=== PATIENT | female | born 1980 | race Caucasian/White ===

== ENCOUNTER → 2017-12-12 10:31 | Outpatient (CLI) | payer BC, SELFPAY ==
[2017-12-12 12:39] LABS: Chlamydia Trachomatis by PCR Negative (Negative); Neisserai gonorrhoeae by PCR Negative (Negative); Probe Check PASS; Sample Adequacy Control PASS; Specimen Processing Control PASS
[2017-12-17 10:47] LABS: HPV Reflexed? NOT INDICATED
== END ==
PROVIDERS: Visit Provider Obstetrics & Gynecology
DX: Z32.01 Encounter for pregnancy test, result positive (principal); Z11.3 Encounter for screening for infections with a predominantly sexual mode of transmission; Z12.4 Encounter for screening for malignant neoplasm of cervix
CPT/HCPCS: 87491; 87591; 88175; G0145

== ENCOUNTER → 2017-12-26 16:39 | Outpatient (CLI) | payer BC, SELFPAY ==
[2017-12-26 17:29] LABS: Absolute Lymphocyte Count 2.15 X10^3/ul (0.83-4.51); Absolute Neutrophil Count 8.1 X10^3/uL (2.0-7.7); Basophil# 0.03 X10^3/uL; Basophil% 0.3 % (0-1); Eosinophil# 0.12 X10^3/uL; Eosinophils% 1.1 % (0-5); Hematocrit 41.1 % (37-47); Hemoglobin 13.9 g/dl (12.0-15.0); Lymphocyte # 2.15 X10^3/ul (4.0); Lymphocyte % 18.9 % (19-41); Mean Corp Hgb Conc 33.8 g/gl (32-36); Mean Corpuscular Hgb 32.1 pg (27.0-32.0); Mean Corpuscular Volume 94.9 fL (81-99); Mean Platelet Vol. 9.7 fl (6.2-12.0); Monocyte# 0.99 X10^3/uL; Monocyte% 8.7 % (0-10); Neutrophil # 8.08 X10^3/uL (2.7-7.7); Neutrophil % 70.7 % (47-70); Platelet Count 350 K/mm3 (150-450); RBC Distribution Width CV 12.7 % (11.6-14.6); RBC Distribution Width SD 42.8 fl (35.1-43.9); Red Blood Count 4.33 M/mm3 (4.2-5.4); White Blood Count 11.4 K/mm3 (4.4-11.0)
[2017-12-26 17:50] LABS: POSITIVE COUNT NO; POSITIVE DIFFERENTIAL NO; POSITIVE MORPHOLOGY NO
[2017-12-26 17:56] LABS: Thyroid Stim Hormone (TSH) 0.31 uIU/mL (0.358-3.74)
[2017-12-26 18:14] LABS: Color, Urine Yellow (Yellow); Glucose, Dipstick Normal (Normal); Ketone-Dipstick Negative (Negative); Leukocyte Esterase-Dipstick Negative /ul (Negative); Nitrite-Dipstick Negative (Negative); Occult Blood-Urine Negative /ul (Negative); Protein-Dipstick Negative (Negative); Specific Gravity, Urine 1.015 (1.002-1.030); Urine Bilirubin Dipstick Negative (Negative); Urine Clarity Sl. Cloudy (Clear); Urine Urobilinogen Normal (Normal)
[2017-12-26 18:39] LABS: Amphetamine Urine VISTA NEGATIVE (<1000 ng/mL); Barbiturate Urine VISTA NEGATIVE (< 200 ng/mL); Benzodiazepine Urine VISTA NEGATIVE (< 200 ng/mL); Cocaine Urine VISTA NEGATIVE (< 300 ng/mL); Ecstacy Urine VISTA NEGATIVE (< 500 ng/mL); Methadone Urine VISTA NEGATIVE (< 300 ng/mL); PCP Urine VISTA NEGATIVE (< 25 ng/mL); THC Urine VISTA NEGATIVE (< 50 ng/mL); Vista UDS pH Range 6
[2017-12-26 19:58] LABS: COTININE Drug Screen Negative (<200 ng/mL)
[2017-12-27 02:42] LABS: Prenatal RPR NONREACTIVE (NONREACTIVE)
[2017-12-27 09:28] LABS: Free T3 3.4 pg/mL (2.18-3.98); T4 Free Direct 1.05 ng/dL (0.76-1.46)
[2017-12-27 10:13] LABS: HIV - WCH Non-Reactive (Nonreactive); Rubella IgG 114.6 IU/mL
[2017-12-28 15:13] LABS: HEPATITIS B SURFACE AG Negative (Negative); Hep C Antibodies 0.2 s/co ratio (0.0-0.9)
== END ==
PROVIDERS: Visit Provider Obstetrics & Gynecology
DX: Z34.81 Encounter for supervision of other normal pregnancy, first trimester (principal)
CPT/HCPCS: 36415; 80307; 81002; 84439; 84443; 84481; 85025; 86703; 86762; 86803; 87340

== ENCOUNTER 2018-08-03 11:15 | Inpatient (IN) | payer OTHER, SELFPAY ==
[2018-08-02 17:15] VITALS: BMI 31.4
[2018-08-02 17:26] LABS: ROM Internal Control Test YES-OK TO RESULT pt. (Internal QC); ROM Patient Test Negative (Negative); Record Kit Lot#, ROM+ J7836
[2018-08-02] MEDS: Lactated Ringers 1,000 ML 999 ML IV (19:13)
[2018-08-02] MEDS: Acetaminophen 500 MG Tablet 1000 MG PO (20:03)
[2018-08-02] MEDS: Lactated Ringers 1,000 ML 150 ML IV (20:12)
[2018-08-02] MEDS: Mag Hydrox/Al Hydrox/Simeth 30 ML UDC PO (21:47)
[2018-08-02] MEDS: Nalbuphine 10 MG/ML Ampul IV (21:47)
[2018-08-03] MEDS: proMETHazine 25 MG/ML Syringe 12.5 MG IV ×2 (00:45→06:45)
[2018-08-03] MEDS: Nalbuphine 10 MG/ML Ampul IV ×2 (00:52→10:21)
[2018-08-03] MEDS: Lactated Ringers 1,000 ML 150 ML IV ×2 (02:07→08:07)
[2018-08-03 11:49] LABS: Hematocrit 42.9 % (37-47); Hemoglobin 13.1 g/dl (12.0-15.0); Mean Corp Hgb Conc 30.5 g/gl (32-36); Mean Corpuscular Hgb 29.2 pg (27.0-32.0); Mean Corpuscular Volume 95.8 fL (81-99); Mean Platelet Vol. 10.7 fl (6.2-12.0); Platelet Count 302 K/mm3 (150-450); RBC Distribution Width CV 17.8 % (11.6-14.6); RBC Distribution Width SD 61.1 fl (35.1-43.9); Red Blood Count 4.48 M/mm3 (4.2-5.4); Scan Indicated on CBC? Y/N NO; White Blood Count 13.1 K/mm3 (4.4-11.0)
[2018-08-03] MEDS: Lactated Ringers 1,000 ML 50 ML IV ×3 (11:50→18:09)
[2018-08-03] MEDS: fentaNYL-bupivacaine (epidural) 100 ML BAG EPIDURAL ×3 (12:54→21:37)
[2018-08-03] MEDS: Oxytocin 30 units/NS 500 ml 30 UNITS/500 ML IV.SOLN IV (13:10)
[2018-08-03] MEDS: Ondansetron 4 MG/2 ML Vial IV (17:44)
[2018-08-03] MEDS: Sodium Citrate/Citric Acid 30 ML UDC PO (22:42)
[2018-08-03] MEDS: Cefazolin 2 GM in 0.9% Normal Saline 100 ML IV (22:43)
[2018-08-03] MEDS: Lactated Ringers 1,000 ML 999 ML IV (22:44)
--- NOTE | 2018-08-03 22:47 | PLAC_PTH ---
PATIENT: STEPHANIE MUSTAFA LOC: [facility] U#:[id number] AGE/SX: 37/F ROOM: WP010 RE08/03/[address]: Dr. Marcus Vee MD : 1980 BED: 1 DIS: 08/06/2018 SPEC #: [id number] RECD: 08/04/18 03:35 STATUS: LEONA REAbilio #: [id number] DIANA: 08/03/18 22:[address]: Marcus Vee DEPT: SURGICAL PATHOLOGY RECD BY: Brody Nick ENTERED: 08/04/18 07:58 SP TYPE: PLACENTA OT DR: No Primary Care Phys Tissues: Placenta, NOS Procedures: Surgery Specimen Level V HEADER OPERATION: Primary section PRE-OP DIAGNOSIS: Maternal fever TISSUE SUBMITTED: Placenta MICROSCOPIC DIAGNOSIS Aguilar placenta (480 gm): Umbilical cord - trivascular with very early acute funisitis (single vessel). Placental membranes - mild acute chorioamnionitis and acute deciduitis. Placental disc - remote infarcts. Focal superficial acute vasculitis, intervillous congestion, mildly increased intraparenchymal fibrin plaques and mild acute deciduitis. AM:sanjana 08/06/18 MICROSCOPIC DESCRIPTION Slides are reviewed. GROSS DESCRIPTION SPECIMEN: PLACENTA / CLINICAL INFORMATION: A. Weight: 3.805 kg B. Gestational Age: 40 weeks C. Sex: Male PLACENTAL WEIGHT (POST FIXATION): 480 gm PLACENTAL DIMENSIONS: 22 x 17 x 2.5 cm PLACENTAL SHAPE: Usual ovoid PLACENTAL WEIGHT FOR GESTATIONAL AGE: Within 10-99th percentile MEMBRANES - Present A. Insertion: Marginal B. Site of rupture from edge: At edge of placental disc C. Color of membrane: Faith-lawrence D. Abnormalities: None UMBILICAL CORD - Present A. Color: Faith-lawrence B. Insertion: Eccentric C. Length: 47 cm D. Diameter: 1.2 cm E. Number of vessels: Three F. Abnormalities: None PLACENTAL DISC - Present A. Color of surface: Faith-lawrence B. surface abnormalities: None C. Maternal cotyledons: Intact with minimal tears D. Attached retro placental clot: No clot E. Cut surface: Dark red and spongy F. Lesions: Serial sections reveal two faith-white firm lesions ranging in size from 2.2 to 2.5 cm. G. Separate clot: Absent SECTIONS SUBMITTED: 1. Membrane roll and umbilical cord ( end notched) 2. Placental disc, and maternal surfaces, lesions 3. Placental disc, and maternal surfaces 4. Placental disc, and maternal surfaces AM:sanjana 08/05/18 TC:2 CPT: 79925
--- NOTE | 2018-08-03 22:53 | OP.PCM_ITS ---
Report of Operation Date of Procedure: 08/03/18 Pre-Operative Diagnosis: Failure to Progress, Increasing Stress, Maternal Flu Symptoms, Maternal Tachycardia Post-Operative Diagnosis: Failure to Progress, Increasing Stress, Maternal Flu Symptoms, Maternal Tachycardia Surgery/Procedure Performed:: Primary Low Transverse Cervical Section Description of Surgical Findings:: Viable male infant with Apgars of 8/9 and an occiput anterior presentation with moderately thick meconium stained fluid and normal but meconium stained three- vessel placenta. Normal-appearing fallopian tubes and ovaries. computer aided design technician: Lindsay Grimaldo Type of Anesthesia:: Epidural - With Duramorph Anesthesiologist: Chapin Durant Specimen's removed: Placenta to pathology for studies Drains: Palomares to straight drain Estimated Blood Loss (mL): 500 cc Fluids Replaced: Crystalloid Description of Procedure: Surgeon: Marcus Vee MD, FACOG Indication: This is a 37-year-old who presents for her first at 40+ weeks gestation. The patient presented last evening with fairly strong and frequent contractions but observation overnight did not show any change in the cervix from fingertip and 50% effaced with high station. We continued to monitor her because she lives almost an hour [place] a half away and she continued to have strong contractions. Mid morning she was examined and noted to be 4 cm 95% effaced and rupture of membranes showed light meconium stained fluid. She progressed to 7 cm 95% and -2 station by mid afternoon and had occasional late decelerations. Of note was maternal tachycardia 145-150 intermittently. Her maximum temperature during this period of time was 100.8 but for the most part was in the 99's. heart tones remained reactive except for occasional late decelerations especially after placing her epidural. We continued to monitor maternal heart rate which eventually settled to approximately 105. At approximately 10 PM maternal temperature spiked to 102+. Cervix remained unchanged at 7 cm 95% effaced and -2 station. care has otherwise been uneventful. Given no progression of the cervix and increasing stress it was decided to proceed with section. It was felt that the maternal fever was most likely due to a virus although her rapid flu test was negative. She did report flulike symptoms from the time of admission to the time that her section was performed. The patient has been counseled regarding the risk and indications of this procedure including the possibility of bleeding infection and injury to surrounding structures such as bowel bladder. All questions were answered. Procedure: Patient was taken to the operating room where after spinal anesthesia was placed, the patient was prepped and draped in usual sterile fashion and a Palomares catheter was placed. The abdomen was entered through a Pfannenstiel incision and peritoneum was entered bluntly. After developing a bladder flap on the lower uterine segment a low transverse incision was made on the uterus and head was easily delivered onto the operative field the nose mouth and oropharynx were bulb suctioned. Subsequently a viable male infant was born with Apgars of 8/9. The was noted to cry move all extremities vigorously on the operative field. The umbilical cord was doubly clamped and ligated and handed to the nursery personnel who were present for the delivery. Placenta was delivered and noted to be 3 vessels and normal. Uterus was exteriorized and remaining placental tissue was removed. The uterus was then closed in 2 layers first with running locked 0 Vicryl suture followed by a second imbricating layer with 0 Vicryl suture. 0 Vicryl suture was then used in a horizontal mattress interrupted fashion to affect final hemostasis of the uterine incision line. Normal fallopian tubes and ovaries were visualized and the uterus was returned to the pelvis. Hemostasis was noted and rectus abdominis muscles were reapproximated in the midline with interrupted Number 0 Vicryl suture in a horizontal mattress fashion. Fascia was closed with running Number 1 PDS Strata fix suture. Subcutaneous tissue was irrigated with copious amouts of saline solution and then closed with running 3-0 Vicryl suture. Skin was closed with 4-0 monocryl suture in a running subcuticular fashion. Steri strips, telfa, and tape were placed across the incision. The patient tolerated the procedure well and was taken to the recovery room in satisfactory condition. Sponge, needle, and instrument counts were all reportedly correct. EBL was less than 500 cc. Ancef 2 gms IV was given prior to the procedure although she had been given multiple doses of penicillin throughout the day for group B strep positive vaginal cultures. Grafts/Implants Used: None - Complications None - Admit VTE Documentation VTE Present on Admission: Yes VTE Mechan Device Prophylaxis: SCD's
--- NOTE | 2018-08-03 22:54 | DCINST_ITS ---
Discharge Diet: No Restrictions Discharge Activity: May not drive while taking narcotic pain medications., May Shower, May Take a Tub Bath May resume sexual activity in: 4-6 weeks Lifting Restrictions: 20 pounds Additional Activity Instructions:: Nothing in the vagina for 4-6 weeks. You may return to work/school in 6 weeks. Call your doctor if your incision/area has: Continuous Slow Oozing, Sudden Increased Bleeding, Increased Pain/ Swelling, Increased Redness, Foul Smelling Discharge Call your doctor if you observe: Fever of 101 or Higher, Inability to urinate, Inability to have a bowel movement, Using more than one pad per hour Additional Instructions: If you experience any of the following, contact your healthcare provider. * Bleeding that soaks a pad every hour for 2 hours * Fever 100.4 or higher * Unrelieved incision or abdominal pain * Swelling, redness, discharge or bleeding from your incision or episiotomy site * Your incision begins to separate * Problems urinating (including inability to urinate or burning while urinating). * Visual changes * Severe headache * Flu-like symptoms * Pain or redness in one of both of your breasts * Pain, warmth, tenderness or swelling in your legs, especially the calf area * Frequent nausea and vomiting * Symptoms of depression or anxiety If you experience any of the following, call 911 or go to the nearest Emergency Room. * Chest pain * Problems breathing * Seizure activity * Partial or complete paralysis of a body part, slurred speech, weakness or drooping of the face, or a sudden inability to walk or hold your balance Allergies/Adverse Reactions: Allergies No Known Allergies Allergy (Verified 08/03/18 11:26) Medications to take at Discharge Vit No.130/Iron/Folic [ Tablet] 1 each PO DAILY 01/30/17 Docusate Sodium [Colace] 100 mg PO BID PRN PRN #60 cap 08/03/18 Oxycodone [Oxyir] 5 mg PO Q6H PRN PRN 7 Days #20 tab 08/03/18 The following prescriptions were given: Oxycodone [Oxyir] 5 mg PO Q6H PRN PRN 7 Days #20 tab PRN Reason: Severe Pain (6-03/26) Docusate Sodium [Colace] 100 mg PO BID PRN PRN #60 cap PRN Reason: Constipation Follow-Up: Call to make an appointment with your doctor for an incision check in 1-2 weeks. You will also need a 6 week post- follow up appointment. Test results from this visit will be discussed in further detail at your follow- up appointment, if applicable. Please Follow Up With: Beto Gloria MD - [phone] When: Call to make an appointment for an incision check in 2 weeks. Primary Care Physician: Care Physician,No Primary [Primary Care Provider] -
[2018-08-03] MEDS: Oxytocin 30 units/NS 500 ml 30 UNITS/500 ML IV.SOLN 167 UNITS IV (23:12)
[2018-08-03] MEDS: Methylergonovine 0.2 MG/ML Ampul IM (23:13)
[2018-08-03] MEDS: Ketorolac 30 MG/ML Syringe IV (23:45)
[2018-08-04] VITALS (26 sets, daily range): BP systolic 105–142; BP diastolic 55–84; PULSE 84–122; RESP 12–20; TEMP 36.7–38.2; O2SAT 94–99
[2018-08-04] MEDS: Acetaminophen 650 MG Suppository RECTAL (00:38)
[2018-08-04] MEDS: Lactated Ringers 1,000 ML 100 ML IV (01:06)
[2018-08-04 04:26] LABS: Pathology Specimen OB SEE PATHOLOGY REPORT
[2018-08-04] MEDS: Ketorolac 30 MG/ML Syringe IV ×3 (06:11→18:00)
[2018-08-04] MEDS: Cefazolin 1 GM/50 ML BAG IV ×2 (06:11→14:53)
[2018-08-04 07:03] LABS: Hematocrit 34.6 % (37-47); Hemoglobin 11.3 g/dl (12.0-15.0); Mean Corp Hgb Conc 32.7 g/gl (32-36); Mean Corpuscular Hgb 30.7 pg (27.0-32.0); Mean Platelet Vol. 10.4 fl (6.2-12.0); Platelet Count 252 K/mm3 (150-450); RBC Distribution Width CV 17.5 % (11.6-14.6); RBC Distribution Width SD 58.1 fl (35.1-43.9); Red Blood Count 3.68 M/mm3 (4.2-5.4); White Blood Count 26.8 K/mm3 (4.4-11.0)
[2018-08-04 07:06] LABS: Scan Indicated on CBC? Y/N NO
--- NOTE | 2018-08-04 10:06 | PCM.PN.OB ---
Subjective: Patient without complaints. Tolerating diet well. Positive flatus. Feeling quite a bit better today versus yesterday in the day before as far as viral symptoms. - Physical Exam Vital Signs Temp Pulse Resp BP Pulse Ox 98.1 F 97 16 108/68 99 08/04/18 08:15 08/04/18 09:14 08/04/18 09:14 08/04/18 08:15 08/04/18 09:14 Oxygen Flow Rate (L/min) 2 Oxygen Delivery Method Room Air Weight: 215 lb 13.321 oz Body Mass Index (BMI) 31.4 Intake and Output for Last 24 Hours 08/02/18 08/03/18 08/04/18 23:59 23:59 23:59 Intake Total 4553 / 4553 2143 / 2143 Output Total 400 / 400 1350 / 1350 Balance 4153 / 4153 793 / 793 Microbiology Past 72 Hours 08/03/18 16:03 Influenza Types A,B Direct FA (LUZMARIA) - Final Mucosa - Nose Laboratory Tests Past 24 Hrs 08/03/18 08/03/18 08/04/18 11:07 11:07 06:10 WBC 13.1 H 26.8 H RBC 4.48 3.68 L Hgb 13.1 11.3 L Hct 42.9 34.6 L MCV 95.8 94.0 MCH 29.2 30.7 MCHC 30.5 L 32.7 RDW 17.8 H 17.5 H RDW Differential 61.1 H 58.1 H Plt Count 302 252 MPV 10.7 10.4 Blood Type AB POSITIVE Antibody Screen NEGATIVE Wound is clean, dry, intact. Good urine output. Hemoglobin okay. WBC still elevated. Medical Necessity - Tobacco Use Smoking Status: Former smoker Assessment/Plan Doing well postoperative day #1 status post primary section for failure to progress, increasing stress, maternal fever, maternal flu symptoms, and maternal tachycardia. Tachycardia has for the most part resolved and flu symptoms seem to be resolving also. WBC still elevated so we will recheck CBC tomorrow. Continuing present care.
[2018-08-04] MEDS: 0.9% Saline Lock 10 ML Syringe IV ×2 (12:01→18:00)
[2018-08-04] MEDS: Lactated Ringers 500 ML IV (16:16)
[2018-08-04] MEDS: Acetaminophen 500 MG Tablet 1000 MG PO (20:54)
[2018-08-05] MEDS: 0.9% Saline Lock 10 ML Syringe IV ×2 (01:24→05:59)
[2018-08-05] MEDS: Ketorolac 30 MG/ML Syringe IV (01:24)
[2018-08-05 05:50] VITALS: BP 105/72; PULSE 87; RESP 18; TEMP 36.8; O2SAT 96
[2018-08-05] MEDS: Ibuprofen 600 MG Tablet PO ×2 (06:20→16:33)
[2018-08-05 06:31] LABS: Absolute Lymphocyte Count 2.74 X10^3/ul (0.83-4.51); Absolute Neutrophil Count 13.1 X10^3/uL (2.0-7.7); Basophil# 0.02 X10^3/uL; Basophil% 0.1 % (0-1); Eosinophil# 0.11 X10^3/uL; Eosinophils% 0.6 % (0-5); Hematocrit 32.7 % (37-47); Hemoglobin 10.5 g/dl (12.0-15.0); Lymphocyte # 2.74 X10^3/ul (4.0); Lymphocyte % 15.6 % (19-41); Mean Corp Hgb Conc 32.1 g/gl (32-36); Mean Corpuscular Hgb 30.3 pg (27.0-32.0); Mean Corpuscular Volume 94.2 fL (81-99); Mean Platelet Vol. 9.8 fl (6.2-12.0); Neutrophil # 13.12 X10^3/uL (2.7-7.7); Neutrophil % 74.8 % (47-70); Platelet Count 269 K/mm3 (150-450); RBC Distribution Width CV 17.6 % (11.6-14.6); RBC Distribution Width SD 58.3 fl (35.1-43.9); Red Blood Count 3.47 M/mm3 (4.2-5.4); White Blood Count 17.6 K/mm3 (4.4-11.0)
[2018-08-05 06:49] LABS: POSITIVE COUNT NO; POSITIVE DIFFERENTIAL NO; POSITIVE MORPHOLOGY NO
--- NOTE | 2018-08-05 08:27 | PCM.PN.OB ---
Subjective: Pain reasonably controlled with mostly motrin. Doesn't like how she feels on oxycodone. Will switch to hydrocodone for strong pain. Bleeding light. Breast feeding. Tolerating PO. Voiding. Objective: Afeb VSS WBC decreasing. - Physical Exam General: Alert, Oriented x3, Cooperative, No apparent distress Lungs: Clear to auscultation, Normal air movement Cardiovascular: Regular rate, Regular Rhythm Abdomen: Soft, Non Tender, - - Incision C/D/I Extremities: No edema Skin: No rashes Neurological: Neuro grossly intact Psych/Mental Status: Normal Affect Comment: Lochia light Vital Signs Temp Pulse Resp BP Pulse Ox 98.2 F 87 18 105/72 96 08/05/18 05:50 08/05/18 05:50 08/05/18 05:50 08/05/18 05:50 08/05/18 05:50 Oxygen Flow Rate (L/min) 2 Oxygen Delivery Method Room Air Weight: 215 lb 13.321 oz Body Mass Index (BMI) 31.4 Intake and Output for Last 24 Hours 08/03/18 08/04/18 08/05/18 23:59 23:59 23:59 Intake Total 4553 / 4553 4281 / 4281 Output Total 400 / 400 2825 / 2825 700 / 700 Balance 4153 / 4153 1456 / 1456 -700 / -700 Microbiology Past 72 Hours 08/03/18 16:03 Influenza Types A,B Direct FA (LUZMARIA) - Final Mucosa - Nose Laboratory Tests Past 24 Hrs 08/05/18 06:14 WBC 17.6 H RBC 3.47 L Hgb 10.5 L Hct 32.7 L MCV 94.2 MCH 30.3 MCHC 32.1 RDW 17.6 H RDW Differential 58.3 H Plt Count 269 MPV 9.8 Immature Gran % (Auto) 0.900 Neut % (Auto) 74.8 H Lymph % (Auto) 15.6 L [place] % (Auto) 8.0 Eos % (Auto) 0.6 Baso % (Auto) 0.1 Absolute Neuts (auto) 13.1 H Absolute Lymphs (auto) 2.74 Total Counted Not Reportable Medical Necessity - Tobacco Use Smoking Status: Former smoker Assessment/Plan Doing well on POD#2. Will continue routine PP care. Droplet precautions in place but likely does not have flu.
[2018-08-05 08:53] VITALS: BP 114/70; PULSE 86; RESP 18; TEMP 37.2; O2SAT 97
[2018-08-05 13:56] VITALS: BP 128/79; PULSE 90; RESP 18; TEMP 37.5; O2SAT 98
[2018-08-05 20:00] VITALS: BP 111/65; PULSE 106; RESP 18; TEMP 36.9; O2SAT 96
[2018-08-06] MEDS: Ibuprofen 600 MG Tablet PO (00:07)
[2018-08-06 02:10] VITALS: BP 125/72; PULSE 80; RESP 16; TEMP 36.2; O2SAT 98
[2018-08-06] MEDS: HYDROcodone Bitartrate/Apap 5/325 Tablet PO ×2 (02:20→11:02)
--- NOTE | 2018-08-06 08:57 | PCM.PN.OB ---
Subjective: Doing well. Some incisinal soreness but overall pain reasonably controlled with PO medications. Breast feeding. Bleeding light. Objective: Afeb VSS - Physical Exam General: Alert, Oriented x3, Cooperative, No apparent distress Lungs: Clear to auscultation, Normal air movement Cardiovascular: Regular rate, Regular Rhythm Abdomen: Soft, Non Tender, Non-Distended, - - Incision dressing dry intact no erythema Extremities: No edema Skin: No rashes Neurological: Neuro grossly intact Psych/Mental Status: Normal Affect Comment: Lochia light Vital Signs Temp Pulse Resp BP Pulse Ox 97.1 F L 80 16 125/72 H 98 08/06/18 02:10 08/06/18 02:10 08/06/18 02:10 08/06/18 02:10 08/06/18 02:10 Oxygen Flow Rate (L/min) 2 Oxygen Delivery Method Room Air Weight: 215 lb 13.321 oz Body Mass Index (BMI) 31.4 Intake and Output for Last 24 Hours 08/04/18 08/05/18 08/06/18 23:59 23:59 23:59 Intake Total 4281 / 4281 Output Total 2825 / 2825 700 / 700 Balance 1456 / 1456 -700 / -700 Microbiology Past 72 Hours 08/03/18 16:03 Influenza Types A,B Direct FA (LUZMARIA) - Final Mucosa - Nose Medical Necessity - Tobacco Use Smoking Status: Former smoker Assessment/Plan Doing well on POD#3. Cleared for discharge home today. Home going instructions and warnings given.
--- NOTE | 2018-08-06 08:59 | PCM.DC.SUM ---
Discharge Date and Diagnosis Date of Admission: 08/03/18 Date of Discharge: 08/06/18 - Primary Discharge Diagnosis S/P Primary C/S - Secondary Discharge Diagnosis Chronic Problems Missed (Chronic) Hospital Course and Treatment Consultations 08/03/18 11:36 Consult: Anesthesia Routine Comment: Reason For Exam: LABOR Operations: - - Primary LTCS Summary of Care Provided: The patient is a 37 year old F [admitted in active labor. Did not progress in labor with maximum cervical dilation of 6 cm. Had fevers in labor likely related to URI/GI viral infection. Influenza testing negative. Primary LTCS was performed by Dr. Vee without complication and postoperative course was unremarkable. She was discharged home on POD#3.] - Physical Exam Vital Signs Temp Pulse Resp BP Pulse Ox 97.1 F L 80 16 125/72 H 98 08/06/18 02:10 08/06/18 02:10 08/06/18 02:10 08/06/18 02:10 08/06/18 02:10 Oxygen Flow Rate (L/min) 2 Oxygen Delivery Method Room Air Weight: 215 lb 13.321 oz Body Mass Index (BMI) 31.4 Intake and Output for Last 24 Hours 08/04/18 08/05/18 08/06/18 23:59 23:59 23:59 Intake Total 4281 / 4281 Output Total 2825 / 2825 700 / 700 Balance 1456 / 1456 -700 / -700 Microbiology Past 72 Hours 08/03/18 16:03 Influenza Types A,B Direct FA (LUZMARIA) - Final Mucosa - Nose Discharge Diet: No Restrictions Discharge Activity: May not drive while taking narcotic pain medications., May Shower, May Take a Tub Bath May resume sexual activity in: 4-6 weeks Additional Activity Instructions:: Nothing in the vagina for 4-6 weeks. You may return to work/school in 6 weeks. Call your doctor if your incision/area has: Continuous Slow Oozing, Sudden Increased Bleeding, Increased Pain/ Swelling, Increased Redness, Foul Smelling Discharge Call your doctor if you observe: Fever of 101 or Higher, Inability to urinate, Inability to have a bowel movement, Using more than one pad per hour, Shortness of breath, Chest pain, Calf discomfort, Uncontrolled pain Cleanse incision/area with: Soap & Water Home Medications: Medications to take at Discharge Vit No.130/Iron/Folic [ Tablet] 1 each PO DAILY 01/30/17 Docusate Sodium [Colace] 100 mg PO BID PRN PRN #60 cap 08/03/18 Oxycodone [Oxyir] 5 mg PO Q6H PRN PRN 7 Days #20 tab 08/03/18 Hydrocodone/Acetaminophen [Hydrocodon-Acetaminophen 5-325] 1 ea PO Q6H PRN PRN 7 Days #30 tab 08/05/18 Ibuprofen 600 mg PO 4X/DAY #30 tab 08/05/18 Following Prescrptions Were Given to Patient: Hydrocodone/Acetaminophen [Hydrocodon-Acetaminophen 5-325] 1 ea PO Q6H PRN PRN 7 Days #30 tab PRN Reason: strong pain Oxycodone [Oxyir] 5 mg PO Q6H PRN PRN 7 Days #20 tab PRN Reason: Severe Pain (6-10/10) Docusate Sodium [Colace] 100 mg PO BID PRN PRN #60 cap PRN Reason: Constipation Ibuprofen 600 mg PO 4X/DAY #30 tab Primary Care Physician: Care Physician,No Primary [Primary Care Provider] - Please Follow Up With: Beto Gloria MD - [phone] When: Call to make an appointment for an incision check in 2 weeks. Disposition: Home Minutes spent on discharge:: 15 Patient Condition:: Good Medical Necessity - Tobacco Use Smoking Status: Former smoker Meaningful Use Info Meaningful Use Diagnoses (Choose all that apply): None applicable
[2018-08-06] MEDS: Senna/Docusate Sodium 1 Tablet PO (09:03)
--- NOTE | 2018-08-06 09:03 | DCINST_ITS ---
Discharge Diet: No Restrictions Discharge Activity: May not drive while taking narcotic pain medications., May Shower, May Take a Tub Bath Return to work on:: 10/06/18 May resume sexual activity in: 4-6 weeks Additional Activity Instructions:: Nothing in the vagina for 4-6 weeks. You may return to work/school in 6 weeks. Call your doctor if your incision/area has: Continuous Slow Oozing, Sudden Increased Bleeding, Increased Pain/ Swelling, Increased Redness, Foul Smelling Discharge Call your doctor if you observe: Fever of 101 or Higher, Inability to urinate, Inability to have a bowel movement, Using more than one pad per hour, Shortness of breath, Chest pain, Calf discomfort, Uncontrolled pain Cleanse incision/area with: Soap & Water Additional Instructions: If you experience any of the following, contact your healthcare provider. * Bleeding that soaks a pad every hour for 2 hours * Fever 100.4 or higher * Unrelieved incision or abdominal pain * Swelling, redness, discharge or bleeding from your incision or episiotomy site * Your incision begins to separate * Problems urinating (including inability to urinate or burning while urinating). * Visual changes * Severe headache * Flu-like symptoms * Pain or redness in one of both of your breasts * Pain, warmth, tenderness or swelling in your legs, especially the calf area * Frequent nausea and vomiting * Symptoms of depression or anxiety If you experience any of the following, call 911 or go to the nearest Emergency Room. * Chest pain * Problems breathing * Seizure activity * Partial or complete paralysis of a body part, slurred speech, weakness or drooping of the face, or a sudden inability to walk or hold your balance Allergies/Adverse Reactions: Allergies No Known Allergies Allergy (Verified 08/03/18 11:26) Medications to take at Discharge Vit No.130/Iron/Folic [ Tablet] 1 each PO DAILY 01/30/17 Docusate Sodium [Colace] 100 mg PO BID PRN PRN #60 cap 08/03/18 Oxycodone [Oxyir] 5 mg PO Q6H PRN PRN 7 Days #20 tab 08/03/18 Hydrocodone/Acetaminophen [Hydrocodon-Acetaminophen 5-325] 1 ea PO Q6H PRN PRN 7 Days #30 tab 08/05/18 Ibuprofen 600 mg PO 4X/DAY #30 tab 08/05/18 The following prescriptions were given: Hydrocodone/Acetaminophen [Hydrocodon-Acetaminophen 5-325] 1 ea PO Q6H PRN PRN 7 Days #30 tab PRN Reason: strong pain Oxycodone [Oxyir] 5 mg PO Q6H PRN PRN 7 Days #20 tab PRN Reason: Severe Pain (6-10/10) Docusate Sodium [Colace] 100 mg PO BID PRN PRN #60 cap PRN Reason: Constipation Ibuprofen 600 mg PO 4X/DAY #30 tab Follow-Up: Call to make an appointment with your doctor for an incision check in 1-2 weeks. You will also need a 6 week post- follow up appointment. Test results from this visit will be discussed in further detail at your follow- up appointment, if applicable. Please Follow Up With: Beto Gloria MD When: one week Primary Care Physician: Care Physician,No Primary [Primary Care Provider] - Proposed Discharge Date: 08/06/18
[2018-08-06 09:07] VITALS: BP 115/73; PULSE 88; RESP 18; TEMP 36.2; O2SAT 98
--- NOTE | 2018-08-06 10:47 | NURSING ---
Prescriptions from Dr Vee for oxyir destroyed and new script from Dr Gloria Hydrococodone given .
[2018-08-06 14:00] VITALS: BP 123/76; PULSE 103; RESP 16; TEMP 36.9; O2SAT 98
[2018-08-06 14:52] VITALS: BP 123/76; PULSE 103; RESP 16; TEMP 36.9; O2SAT 98
== END 2018-08-06 14:50 | disposition home or self-care (01) | DRG 787 ==
LOC: WPOUT 11:28
PROVIDERS: Admitting Provider Obstetrics & Gynecology; Referring Provider Obstetrics & Gynecology; Visit Provider Obstetrics & Gynecology
DX: O62.0 Primary inadequate contractions (principal); O98.82 Other maternal infectious and parasitic diseases complicating childbirth; O98.52 Other viral diseases complicating childbirth; O76 Abnormality in fetal heart rate and rhythm complicating labor and delivery; B34.9 Viral infection, unspecified; O77.0 Labor and delivery complicated by meconium in amniotic fluid; B95.1 Streptococcus, group B, as the cause of diseases classified elsewhere; Z3A.40 40 weeks gestation of pregnancy; Z37.0 Single live birth; Z22.330 Carrier of Group B streptococcus; Z87.891 Personal history of nicotine dependence
CPT/HCPCS: 59025; 59050; 84112; 85025; 85027; 86850; 86900; 87804; 88307; 99218; J7120; A4216; G0378; J2405